=== PATIENT | male | born 1990 | race Caucasian/White ===

== ENCOUNTER 2018-05-07 01:20 | Emergency (ER) | payer SELFPAY ==
[2018-05-07 01:21] VITALS: BP 144/115
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
== END 2018-05-07 01:30 ==
LOC: ER 01:23
DX: F10.920 Alcohol use, unspecified with intoxication, uncomplicated (principal); S00.83XA Contusion of other part of head, initial encounter
CPT/HCPCS: 99281